=== PATIENT | male | born 1985 | race Caucasian/White ===

== ENCOUNTER 2023-12-16 14:06 | Outpatient (OUT) | payer OTHER, SELFPAY ==
--- NOTE | 2023-12-16 | XR_ITS ---
The [address] [address] Patient Name: MATTHIAS VALLEJO MRN: [id number] date: 1985 Sex: M Assigned Patient Location: Current Patient Location: Accession/Order Number: [id number] Exam Date: 12/16/2023 14:07 Report Date: 12/17/2023 06:12 At the request of: KAREL CURTIS Procedure: XR ankle ERLINDA min 3V PROCEDURE: XR ankle ERLINDA min 3V HISTORY: BILATERAL ANKLE PAIN COMPARISON: None. FINDINGS: BONES:No fracture, acute abnormality, or significant arthropathy. SOFT TISSUES:No visible soft tissue swelling. EFFUSION:None visible. OTHER: Negative. XR/XR ankle ERLINDA min 3V IMPRESSION: 1. No acute bone abnormality or significant degenerative joint disease of the right or left ankle. Electronically authenticated by: SINDY FERGUSON Date: 12/17/2023 06:12
== END 2023-12-16 14:07 | disposition home or self-care (01) ==
LOC: EC 14:06
PROVIDERS: Visit Provider Podiatrist Foot & Ankle Surgery
DX: M25.572 Pain in left ankle and joints of left foot (principal); M25.571 Pain in right ankle and joints of right foot
CPT/HCPCS: 73610